=== PATIENT | female | born 1995 | race African-American/Black ===

== ENCOUNTER 2020-11-13 01:39 | Emergency (ER) | payer MEDICAID, OTHER ==
[~2020-11-13] VITALS: Ht 157.5 cm; Wt 46.7 kg
[2020-11-13 01:39] VITALS: BP 106/72
== END 2020-11-13 03:14 | disposition left against medical advice (07) ==
LOC: ER 01:40
DX: J02.9 Acute pharyngitis, unspecified (principal); Z53.21 Procedure and treatment not carried out due to patient leaving prior to being seen by health care provider

== ENCOUNTER 2021-08-24 11:53 | Observation (INO) | payer MEDICAID ==
[~2021-08-24] VITALS: Ht 157.5 cm; Wt 59.0 kg
[2021-08-24] MEDS ORDERED: PREN-96 PO (12:58)
[2021-08-24] MEDS ORDERED: PROG1CRE TD (12:58)
[2021-08-24] MEDS ORDERED: TERBUTALINE SULFATE 1 MG/ML 1ML VIAL SC SCH (13:15)
== END 2021-08-24 15:04 | disposition home or self-care (01) ==
LOC: LDRP 11:53
PROVIDERS: ADMIT Obstetrics & Gynecology; ATTEND Obstetrics & Gynecology
DX: O60.02 Preterm labor without delivery, second trimester (principal); Z3A.24 24 weeks gestation of pregnancy
CPT/HCPCS: 59025; 76805; 76817; 81002; 94760; 96372; G0378; J3105

== ENCOUNTER 2024-06-03 19:32 | Emergency (ER) | payer MEDICAID ==
[~2024-06-03] VITALS: Ht 157.5 cm; Wt 51.5 kg
[~2024-06-03 19:32] MED LIST: PREN-96 PO; PROG1CRE TD
[2024-06-03 20:06] VITALS: BP 134/87; PULSE 91; RESP 20
[2024-06-03 21:10] VITALS: O2SAT 100
--- NOTE | 2024-06-03 21:21 | ED.PDOC ---
SOB-HPI HPI Comments 28-YEAR-OLD FEMALE PRESENTS TO ER WITH COMPLAINTS OF COUGH X2 WEEKS. PATIENT REPORTS THAT SHE HAS BEEN EXPERIENCING A COUGH X2 WEEKS THAT TURNED PRODUCTIVE WITH "STREAKS OF BLOOD" X 2 DAYS. DENIES USE OF MEDICATIONS FOR CURRENT SYMPTOMS. DENIES ANY PAIN. PATIENT PRESENTS TO ER AMBULATORY ON ARRIVAL, WITH STEADY GAIT, IN NO DISTRESS AND DENIES DRUG USE BUT STATES THAT SHE DOES SMOKE CIGARETTES AND SMOKES "BLACK AND MILD'S". DENIES FEVER, BODY ACHES, CHILLS, CHEST PAIN, PALPITATIONS, FATIGUE, NIGHT SWEATS, KNOWN EXPOSURE TO SICK CONTACTS OR ANY FURTHER SYMPTOMS/COMPLAINTS Chief Complaint: Cough Time Seen by MD: 19:34 Primary Care Provider: UNKNOWN Reviewed notes: Nurses Notes, Medications, Allergies Information Source: Patient Mode of Arrival: Ambulatory Past Medical History PAST MEDICAL HISTORY: Anemia, Denies Surgical History: Family History Family History: Unknown Social History Smoker: Non-Smoker Alcohol: Denies ETOH Use Drugs: Denies Drug Use Lives In: Home Constitutional: denies: chills, diaphoresis, fatigue, fever, malaise, sweats, weakness, others EENTM: denies: blurred vision, double vision, ear bleeding, ear discharge, ear drainage, ear pain, ear ringing, eye pain, eye redness, hearing loss, mouth abundio n, mouth swelling, nasal discharge, nose bleeding, nose congestion, nose pain, photophobia, tearing, throat pain, throat swelling, voice changes, others Respiratory: reports: others ( STATED IN HPI) Cardiovascular: denies: chest pain, dizzy spells, diaphoresis, Dyspnea on exertion, edema, irregular heart beat, left arm pain, lightheadedness, palpitations, PND, syncope, others Gastrointestinal: denies: abdomen distended, abdominal pain, blood streaked bowels, constipated, diarrhea, dysphagia, difficulty swallowing, hematemesis, melena, nausea, poor appetite, poor fluid intake, rectal bleeding, rectal pain, vomiting, others Genitourinary: denies: abnormal vagina bleeding, burning, dyspareunia, dysuria, flank pain, frequency, hematuria, incontinence, pain, , vagina disc harge, urgency, others Neurological: denies: dizziness, fainting, headache, left sided numbness, left sided weakness, numbness, paresthesia, pre-existing deficit, right sided numbness, right sided weakness, seizure, speech problems, tingling, tremors, weakness, others Musculoskeletal: denies: back pain, gout, joint pain, joint swelling, muscle pain, muscle stiffness, neck pain, others Integumetry: denies: bruises, change in color, change in hair/nails, dryness, laceration, lesions, lumps, rash, wounds, others Allergic/Immunocompromised: denies: Difficulty Healing, Frequent Infections, Hives, Itching, others Hematologic/Lymphatic: denies: anemia, blood clots, easy bleeding, easy bruising, swollen glands, others Endocrine: denies: excessive hunger, excessive sweating, excessive thirst, excessive urination, flushing, intolerance to cold, intolerance to heat, unexplained weight gain, unexplained weight loss, others Psychiatric: denies: anxiety, bipolar disorder, depression, hopeless, panic disorder, schizophrenia, sleepless, suicidal, others Physical Exam General Appearance: No Apparent Distress HEENT: Normal ENT Inspection, Pharynx Normal, TMs Normal Neck: Full Range of Motion, Non-Tender, Normal Respiratory: Chest Non-Tender, Lungs Clear, No Accessory Muscle Use, No Respiratory Distress, Normal Breath Sounds Cardiovascular: No Murmur, No Gallop, Regular Rate/Rhythm Breast Exam: Deferred Gastrointestinal: NOT DONE Genitalia: Deferred Pelvic: Deferred Rectal: Deferred Extremities: Normal capillary refill, Normal range of motion Neurologic: Alert, insurance operations rep II-XII nml as Tested, No Motor Deficits, Normal Affect, Normal Mood, No Sensory Deficits Cerebellar Function: Normal Reflexes: Normal Skin: Dry, Normal Color, Warm Peripheral Pulses: 2+ Radial (R), 2+ Radial (L), 2+ Brachial (R), 2+ Brachial (L) Lymphatic: No Adenopathy Was a procedure done? Was a procedure done?: No Sedation Sedation?: No Differential Dx Differential Diagnosis: Pneumonia, Pulmonary Embolism, Respiratory Distress X-Ray, Labs, Meds, VS Vital Signs Date Time Temp Pulse Resp B/P (MAP) Pulse Ox O2 Delivery O2 Flow Rate FiO2 06/03/24 21:10 100 Room Air* 0 21 06/03/24 20:06 97.9 91 20 134/87 (103) 100 06/03/24 20:06 20 100 Room Air* 0 21 Lab Test 06/03/24 21:47 Range/Units White Blood Count 7.7 4.4-10.8 10^3/uL Red Blood Count 4.75 4.0-5.20 10^6/uL Hemoglobin 9.4 L 12.2-16.2 g/dL Hematocrit 31.7 L 36.0-46.0 % Mean Corpuscular Volume 66.8 L 80.0-100.0 fL Mean Corpuscular Hemoglobin 19.9 L 28.0-32.0 pg Mean Corpuscular Hemoglobin Concent 29.7 L 32.0-36.0 g/dL Red Cell Distribution Width 18.8 H 11.8-14.3 % Platelet Count 339 140-450 10^3/uL Mean Platelet Volume 7.3 6.9-10.8 fL Neutrophils (%) (Auto) 44.8 37.0-80.0 % Lymphocytes (%) (Auto) 39.5 10.0-50.0 % Monocytes (%) (Auto) 8.6 0.0-12.0 % Eosinophils (%) (Auto) 6.3 0.0-7.0 % Basophils (%) (Auto) 0.8 0.0-2.0 % Neutrophils # (Auto) 3.4 1.6-8.6 10 ^3/uL Lymphocytes # (Auto) 3.0 0.4-5.4 10 ^3/uL Monocytes # (Auto) 0.7 0-1.3 10 ^3/uL Eosinophils # (Auto) 0.5 0-0.8 10 ^3/uL Basophils # (Auto) 0.1 0-0.2 10 ^3/uL Nucleated Red Blood Cells 0.0 % D-Dimer, Quantitative 0.23 0.0-0.49 mg/L FEU PATIENT: TIANA SANTANA PHIACCT: [id number]: [id number] : 08/25/1982 LOC: ER ROOM / BED: / AGE / SEX: 41 / F ADM STATUS: REG ER SERVICE [id number] ORDERING PHYSICIAN: JOSE ANTONIO TUCKER PROCEDURE(s): PELUS - PELVIC REASON: PELVIC PAIN ORDER NUMBER(s): [id number], ACCESSION NUMBER(s): [id number] TRANSABDOMINAL PELVIC ULTRASOUND CLINICAL HISTORY: PELVIC PAIN TECHNIQUE: Multiple grayscale ultrasound images were obtained of the pelvis via transabdominal approach. Limited color Doppler and spectral Doppler acquisitions were also obtained. COMPARISON: None FINDINGS: Uterus: 7.5 x 5.5 x 3.7 cm. The uterine contour is smooth. No myometrial masses are seen. Endometrium: 1.2 cm. No endometrial mass is seen. Right adnexa: right ovary 3.4 x 2.2 x 2.0 cm. Normal arterial blood flow in the ovary. No right adnexal mass seen. Small cysts or prominent follicles in the right ovary largest measuring 1.5 cm. Left adnexa: left ovary 3.8 x 3.7 x 2.7 cm. Normal arterial blood flow in the ovary. No left adnexal mass seen. Small cysts or prominent follicles in the left ovary largest measuring 2.1 cm Other: None IMPRESSION: Unremarkable pelvic ultrasound ATED BY: ALESSANDRO LEROY MD DICTATED DATE/TIME: 06/03/242043 SIGNED BY: ALESSANDRO LEROY MD SIGNED DATE/TIME: 06/03/242043 CC: WAIVER SIGNED CBC REVIEWED-HEMOGLOBIN 9.4-PATIENT REPORTS HISTORY OF ANEMIA D-DIMER REVIEWED-NORMAL CHEST X-RAY REVIEWED ADVISED TO DRINK PLENTY OF FLUIDS SMOKING CESSATION DISCUSSED AND ADVISED NO COUGHING WAS NOTED DURING ER VISIT AND PATIENT DENIED ANY SHORTNESS OF BREATH/IN NO DISTRESS DURING ER VISIT/PRIOR TO DISCHARGE ADVISED TO FOLLOW UP WITH PCP IN 1-2 DAYS PATIENT VERBALIZED UNDERSTANDING AND AGREEABLE WITH CURRENT PLAN OF CARE ADVISED TO RETURN TO ER IMMEDIATELY IF SYMPTOMS WORSEN Images Reviewed?: Images reviewed and evaluated by me Time of 1ST Reevaluation: 21:22 Reevaluation 1ST: N/A Patient Education/Counseling: Diagnosis, Treatment, Prognosis, Need For Follow Up Family Education/Counseling: No Family Present Departure 1 Departure Time of Disposition: 22:52 Impression: Primary Impression: Bronchospasm Additional Impressions: Hemoptysis Current smoker Disposition: 01 HOME / SELF CARE / HOMELESS Condition: Stable Critical Care Note Critical Care Time?: No Stability Stability form required: No Heart Score Heart Score: Heart Score Response (Comments) Value History N/A 0 EKG N/A 0 Age N/A 0 Risk Factors N/A 0 Troponin N/A 0 Total 0 JOSE ANTONIO TUCKER Jun 03, 2024 21:21
--- NOTE | 2024-06-03 21:46 | DVH ---
CHEST RADIOGRAPH Indication: HEMOPTYSIS Technique: Frontal and lateral view of the chest was obtained Comparison: None FINDINGS: Lines and Tubes: None Lungs: Clear Pleura: No effusion. No pneumothorax. Cardiomediastinal contours: Unremarkable Bones: Unremarkable IMPRESSION: 1. No evidence of acute disease.
[2024-06-03 22:07] LABS: Basophils # (auto) 0.1 10 ^3/uL (0-0.2); Eosinophils # (auto) 0.5 10 ^3/uL (0-0.8); Monocytes # (auto) 0.7 10 ^3/uL (0-1.3); Neutrophils # (auto) 3.4 10 ^3/uL (1.6-8.6)
[2024-06-03 22:09] LABS: Basophils % (auto) 0.8 % (0.0-2.0); Eosinophils % (auto) 6.3 % (0.0-7.0); Hematocrit 31.7 % (36.0-46.0); Hemoglobin 9.4 g/dL (12.2-16.2); Lymphocytes % (auto) 39.5 % (10.0-50.0); Mean Corpuscular Hemoglobin 19.9 pg (28.0-32.0); Mean Corpuscular Hgb Conc. 29.7 g/dL (32.0-36.0); Mean Corpuscular Volume 66.8 fL (80.0-100.0); Monocytes % (auto) 8.6 % (0.0-12.0); Neutrophils % (auto) 44.8 % (37.0-80.0); Platelet Count (auto) 339 10^3/uL (140-450); Red Blood Cells 4.75 10^6/uL (4.0-5.20); Red Cell Distribution Width 18.8 % (11.8-14.3); White Blood Cell 7.7 10^3/uL (4.4-10.8)
== END 2024-06-03 23:05 | disposition home or self-care (01) ==
LOC: ER 19:32
DX: J98.01 Acute bronchospasm (principal); R04.2 Hemoptysis; Z98.890 Other specified postprocedural states
CPT/HCPCS: 36415; 71046; 85025; 85379

== ENCOUNTER 2024-06-07 07:08 | Emergency (ER) | payer MEDICAID ==
[~2024-06-07] VITALS: Ht 157.5 cm; Wt 50.0 kg
[2024-06-07 07:10] VITALS: TEMP 98.3
--- NOTE | 2024-06-07 07:19 | ED.PDOC ---
History of Present Illness HPI Comments 28-year-old female presents with a chief complaint of right ankle pain s/p mechanical fall. Patient states that she fell while going down stairs and missed 2 steps. Patient states that she "sorta rolled" her ankle but denies a full-on twisting of the ankle. Patient is able to walk with steady gait, but states that there is pain when she places weight on the right foot. Patient has no deformities, no swelling, no redness, or bruising to her right ankle. No other symptoms or modifying factors present at this time. Time Seen by MD: 07:15 Primary Care Provider: UNKNOWN Reviewed Notes: Medications, Allergies Allergies: Coded Allergies: NO KNOWN ALLERGIES (Unverified , 08/24/21) Home Meds Reported Medications Progesterone (Progesterone 10% Kit) 10 % Cre, 10 % TD HS, CRE 08/24/21 Vit W/ Ferrous Fumara ( One Daily) Daily Tab, 1 TAB PO DAILY, #90 TAB 3 Refills 08/24/21 Information Source: Patient Mode of Arrival: Ambulatory Severity: Moderate Timing: Days Duration: Since onset Prehospital treatment: None Past Medical History PAST MEDICAL HISTORY: Anemia, Denies Surgical History: Family History Family History: Unknown Social History Smoker: Non-Smoker Alcohol: Denies ETOH Use Drugs: Denies Drug Use Lives In: Home Constitutional: denies: chills, diaphoresis, fatigue, fever, malaise, sweats, weakness, others EENTM: denies: blurred vision, double vision, ear bleeding, ear discharge, ear drainage, ear pain, ear ringing, eye pain, eye redness, hearing loss, mouth pain, mouth swelling, nasal discharge, nose bleeding, nose congestion, nose pain, photophobia, tearing, throat pain, throat swelling, voice changes, others Respiratory: denies: cough, hemoptysis, orthopnea, SOB at rest, shortness of breath, SOB with excertion, stridor, wheezing, others Cardiovascular: denies: chest pain, dizzy spells, diaphoresis, Dyspnea on exertion, edema, irregular heart beat, left arm pain, lightheadedness, palpitat ions, PND, syncope, others Gastrointestinal: denies: abdomen distended, abdominal pain, blood streaked bow els, constipated, diarrhea, dysphagia, difficulty swallowing, hematemesis, melena, nausea, poor appetite, poor fluid intake, rectal bleeding, rectal pain, vomiting, others Genitourinary: denies: abnormal vagina bleeding, burning, dyspareunia, dysuria, flank pain, frequency, hematuria, incontinence, pain, , vagina discharge, urgency, others Neurological: denies: dizziness, fainting, headache, left sided numbness, left sided weakness, numbness, paresthesia, pre-existing deficit, right sided numbness, right sided weakness, seizure, speech problems, tingling, tremors, weakness, others Musculoskeletal: reports: joint pain (RIGHT ANKLE); denies: back pain, gout, joint swelling, muscle pain, muscle stiffness, neck pain, others Integumetry: denies: bruises, change in color, change in hair/nails, dryness, laceration, lesions, lumps, rash, wounds, others Allergic/Immunocompromised: denies: Difficulty Healing, Frequent Infections, Hives, Itching, others Hematologic/Lymphatic: denies: anemia, blood clots, easy bleeding, easy bruising, swollen glands, others Endocrine: denies: excessive hunger, excessive sweating, excessive thirst, excessive urination, flushing, intolerance to cold, intolerance to heat, unexplained weight gain, unexplained weight loss, others Psychiatric: denies: anxiety, bipolar disorder, depression, hopeless, panic disorder, schizophrenia, sleepless, suicidal, others All Other Systems: Reviewed and Negative Physical Exam General Appearance: No Apparent Distress, Normal HEENT: Normal ENT Inspection, Pharynx Normal, TMs Normal Neck: Full Range of Motion, Non-Tender, Normal, Normal Inspection Respiratory: Chest Non-Tender, Lungs Clear, No Accessory Muscle Use, No Respiratory Distress, Normal Breath Sounds Cardiovascular: No Edema, No JVD, No Murmur, No Gallop, Normal Peripheral Pulses, Regular Rate/Rhythm Breast Exam: Deferred Gastrointestinal: No Organomegaly, Non Tender, No Pulsatile Mass, Normal Bowel Sounds, Soft Genitalia: Deferred Pelvic: Deferred Rectal: Deferred Extremities: Decreased range of motion (RIGHT ANKLE ), No calf tenderness, No pedal edema, Tender (RIGHT ANKLE), Other (NO DEFORMITIES, NO SWELLING, NO REDNESS, NO BRUISING, WALLKING WITH STEADY GAIT) Musculoskeletal : Apperance: Normal Neurologic: Alert, pricing actuary II-XII nml as Tested, No Motor Deficits, Normal Affect, Normal Mood, No Sensory Deficits Cerebellar Function: Normal Reflexes: Normal Skin: Dry, Normal Color, Warm Lymphatic: No Adenopathy Was a procedure done? Was a procedure done?: Yes Sedation Sedation?: No Other Procedure Procedure short posterior right foot splint- good position, good neurovascular functions Differential Dx Considerations may include: fracture, dislocation, sprain, strain, contusion, plantar fasciitis X-Ray, Labs, Meds, VS Vital Signs Date Time Temp Pulse Resp B/P (MAP) Pulse Ox O2 Delivery O2 Flow Rate FiO2 06/07/24 07:21 98.3 93 16 101/69 (80) 97 06/07/24 07:10 93 16 97 Room Air 06/07/24 07:10 98.3 93 16 101/69 (80) 97 98.3 Time of 1ST Reevaluation: 07:45 Reevaluation 1ST: Unchanged Patient Education/Counseling: Diagnosis, Treatment, Prognosis, Need For Follow Up Family Education/Counseling: No Family Present Comments The following tests were ordered, and results were reviewed by me: Right Ankle X-Ray I reviewed and agreed with the following test results read by other providers: Right Ankle X-Ray Additional Information pt does not have pain over the medial part of the foot. the xray suggests lisfranc's injury, however. i will have her splinted and she is stable to follow up with her doctor on saturday for repeat eval Departure 1 Departure Time of Disposition: 10:23 Impression: Primary Impression: Foot pain, right Disposition: 01 HOME / SELF CARE / HOMELESS Condition: Good e-Prescriptions Ibuprofen Micronized (MOTRIN TABLET) 600 Mg Tb 600 MG PO TID PRN, #40 TAB *Black box warning-NSAIDS can increase risk of CA & hypertension, GI irritation, ulceration, bleed, perferation. Do not use post cardiac surgery. Use short duration/lowest effective dose. Prov: BONI BLANKENSHIP MD 06/07/24 Discharged With: Self Critical Care Note Critical Care Time?: No Stability Stability form required: No I personally scribed for B[facility]I [facility]SHIP [facility] on 06/07/24 at 07:19. Electronically submitted by Darius Lomeli ([email or web address]). I personally scribed for BONI BLANKENSHIP MD ([facility]) on 06/07/24 at 07:21. Electronically submitted by Darius Lomeli ([email or web address]). BONI BLANKENSHIP MD Jun 07, 2024 07:19
[2024-06-07 07:21] VITALS: BP 101/69; PULSE 93; RESP 16; O2SAT 97
--- NOTE | 2024-06-07 07:55 | DVH ---
CLINICAL INDICATION: pain TECHNIQUE: Right XY R FOOT 3 VIEW XRAY Comparison: None FINDINGS/IMPRESSION: : Widening /subluxation of the joint between 1st and 2nd metatarsal bases and cuneiform bones, suggest yulissa of Lisfranc injury. Correlation with the point of tenderness is suggested. Mild soft tissue swelling is noted.
[2024-06-07] MEDS ORDERED: IBU600T PO (10:24)
== END 2024-06-07 10:46 | disposition home or self-care (01) ==
LOC: ER 07:08
DX: M79.671 Pain in right foot (principal); M25.571 Pain in right ankle and joints of right foot; D64.9 Anemia, unspecified; Z79.899 Other long term (current) drug therapy; Z98.890 Other specified postprocedural states; W10.8XXA Fall (on) (from) other stairs and steps, initial encounter; Y93.01 Activity, walking, marching and hiking; Y92.89 Other specified places as the place of occurrence of the external cause; Y99.8 Other external cause status
CPT/HCPCS: 29515; 73630